=== PATIENT | female | born 1990 | race Asian ===

== ENCOUNTER 2023-01-06 11:45 | Emergency (ER) | payer OTHER ==
[~2023-01-06] VITALS: Ht 162.6 cm; Wt 45.5 kg
[2023-01-06] MEDS ORDERED: IBUPROFEN 400 MG TABLET PO ONE (13:15)
[2023-01-06 13:54] VITALS: BP 113/66
== END 2023-01-06 14:50 | disposition home or self-care (01) ==
LOC: EMS 11:54
DX: S13.4XXA Sprain of ligaments of cervical spine, initial encounter (principal); V59.88XA Occupant (driver) (passenger) of pick-up truck or van injured in other specified transport accidents, initial encounter; W22.19XA Striking against or struck by other automobile airbag, initial encounter; Y93.89 Activity, other specified; Y92.89 Other specified places as the place of occurrence of the external cause; Y99.8 Other external cause status
CPT/HCPCS: 99283